=== PATIENT | female | born 1980 | race African-American/Black ===

== ENCOUNTER 2016-06-06 02:11 | Inpatient (IN) | payer OTHER ==
[~2016-06-06] VITALS: Ht 160 cm; Wt 55.1 kg
[~2016-06-06 02:11] MED LIST: ADVIL COLD &1 TABLET PO; AMLODIPINE BESYL5 MG PO; AZOR 5/20 MG1 TABLET PO; CIPRO500 MG PO; FLAGYL500 MG PO; FLEXERIL10 MG PO; FLUOXETINE HCL20 MG PO; KEFLEX500 MG PO; MIRTAZAPINE15 MG PO; NAPROSYN375 MG PO; NORCO 5/3251 TABLET PO; OMEPRAZOLE40 M1 PO; PAROXETINE HCL20 MG PO; PAXIL20 MG PO; PAXIL30 MG PO; PYRIDIUM200 MG PO; REMERON15 M2 PO; STOOL SOFTENER100 MG PO; TORADOL10 MG PO; TRILEPTAL150 MG PO; TRILEPTAL300 MG PO; VALACYCLOVIR500 MG PO; VITAFUSION PO; ZOVIRAX200 MG PO
[2016-06-06] MEDS ORDERED: TRILEPTAL300 MG PO (02:48)
[2016-06-06] MEDS ORDERED: SEROQUEL200 MG PO (02:48)
[2016-06-06] MEDS ORDERED: NORVASC10 MG PO (02:49)
[2016-06-06 03:28] LABS: HEMATOCRIT 40.5 % (36.0-46.0); MCHC 32.3 G/DL (30.0-36.0); MCV 80.4 FL (83-99); MEAN PLAT.VOLUME 9.5 uM^3 (9.5-12.4); PLATELET COUNT 354 K/uL (156-360); RBC DIS.WIDTH-SD 49.4 % (39-53); RED BLOOD COUNT 5.04 M/uL (3.80-5.20); WHITE BLOOD COUNT 13.5 K/uL (4.1-10.2)
[2016-06-06 03:40] LABS: CHLORIDE 106 mEq/L (99-109); POTASSIUM 3.7 mEq/L (3.7-5.4); SODIUM 143 mEq/L (136-147)
[2016-06-06 03:42] LABS: GLUCOSE 79 mg/dL (70-99)
[2016-06-06 03:43] LABS: ANION GAP 15 MEQ/L (2-14)
[2016-06-06 03:45] LABS: SERUM ETHYL ALCOHOL 40 mg/dL
[2016-06-06 03:46] LABS: GFR ESTIMATE (CALCULATED) > 59 mL/min/
[2016-06-06 03:47] LABS: UREA NITROGEN (BUN) 12 mg/dL (9-23)
[2016-06-06 04:13] LABS: QUANTITATIVE HCG < 4.0 MIU/ML
[2016-06-06 05:19] LABS: ADD MIUA? YES; BILIRUBIN NEGATIVE; BLOOD NEGATIVE; COLOR YELLOW ((YELLOW)); GLUCOSE (STRIP) NEGATIVE; KETONES NEGATIVE; LEUKOCYTES TRACE; NITRITE NEGATIVE; PROTEIN (STRIP) NEGATIVE; SPECIFIC GRAVITY 1.012 (1.000-1.030); UROBILINOGEN 0.2 MG/DL (0.2-1.0)
[2016-06-06 05:27] LABS: BACTERIA RARE /HPF; EPITHELIAL CELLS RARE /HPF; MUCUS TRACE /LPF; RED BLOOD CELLS 0-5 /HPF (0-5); UCUL ADDED? NO; WHITE BLOOD CELLS 15-20 /HPF (0-5)
[2016-06-06 05:45] LABS: PHENCYCLIDINE NEGATIVE (25 ng/mL); THC CANNABINOIDS NEGATIVE (50 ng/mL)
[2016-06-06 05:46] LABS: ADD MEDTOX COMMENT Y; AMPHETAMINE NEGATIVE (500 ng/mL); BARBITURATES NEGATIVE (200 ng/mL); BENZODIAZEPINES NEGATIVE (150 ng/mL); COCAINE PRESUMPTIVE POSITIVE (150 ng/mL); INTERNAL CONTROLS VALID? YES; METHADONE NEGATIVE (200 ng/mL); METHAMPHETAMINE NEGATIVE (500 ng/mL); OPIATES (MORPHINE) NEGATIVE (100 ng/mL); OXYCODONE NEGATIVE (100 ng/mL); PROPOXYPHENE NEGATIVE (300 ng/mL); TRICYCLIC ANTIDEPRESSANTS NEGATIVE (300 ng/mL)
[2016-06-06 09:23] VITALS: BP 141/66
[2016-06-06 15:44] VITALS: BP 121/69
[2016-06-07 07:37] VITALS: BP 140/75
[2016-06-07 14:48] VITALS: BP 109/57
[2016-06-08 09:53] VITALS: BP 126/75
[2016-06-08 15:07] VITALS: BP 148/81
[2016-06-09 07:24] VITALS: BP 112/59
[2016-06-09 15:46] VITALS: BP 149/84
[2016-06-10 07:47] VITALS: BP 117/71
[2016-06-10 15:46] VITALS: BP 137/82
[2016-06-11 07:57] VITALS: BP 118/82
[2016-06-11] MEDS ORDERED: SEROQUEL200 MG PO (15:02)
[2016-06-11] MEDS ORDERED: NORVASC10 MG PO (15:02)
[2016-06-11] MEDS ORDERED: MIRTAZAPINE15 MG PO (15:02)
[2016-06-11] MEDS ORDERED: TRILEPTAL300 MG PO (15:02)
[2016-06-11 15:27] VITALS: BP 147/92
== END 2016-06-11 16:17 | disposition home or self-care (01) | DRG 885 ==
LOC: EME 02:11 → EDOF 08:35 → 1WEST 08:35 → EDOF 08:57 → 1WEST 09:17
PROVIDERS: Emergency Medicine
DX: F31.30 Bipolar disorder, current episode depressed, mild or moderate severity, unspecified (principal); F10.14 Alcohol abuse with alcohol-induced mood disorder; R45.851 Suicidal ideations; K61.1 Rectal abscess; F14.20 Cocaine dependence, uncomplicated; F17.210 Nicotine dependence, cigarettes, uncomplicated; Z88.0 Allergy status to penicillin; Y90.2 Blood alcohol level of 40-59 mg/100 ml; F60.9 Personality disorder, unspecified; N70.11 Chronic salpingitis; Z91.128 Patient's intentional underdosing of medication regimen for other reason; F15.10 Other stimulant abuse, uncomplicated; Z88.1 Allergy status to other antibiotic agents; Z59.0 Homelessness; Z56.0 Unemployment, unspecified
CPT/HCPCS: 71020; 72193; 80048; 81003; 84702; 84999; 85027; 90839; 97150 GO; 97166 GO; 99281; 99285; G0480; J2060; J7030

== ENCOUNTER 2016-06-29 04:16 | Emergency (ER) | payer OTHER ==
[~2016-06-29] VITALS: Ht 160 cm; Wt 57.7 kg
[~2016-06-29 04:16] MED LIST changes: +NORVASC10 MG PO; +SEROQUEL200 MG PO
[2016-06-29] MEDS ORDERED: CLEOCIN PE75 MG/5 ML PO (04:37)
[2016-06-29] MEDS ORDERED: PERCOCET 5/31 TABLET PO (04:37)
[2016-06-29 06:06] VITALS: BP 109/71
== END 2016-06-29 06:06 | disposition home or self-care (01) ==
LOC: EXP 04:16 → EME 04:16 → EXP 06:06
DX: L02.31 Cutaneous abscess of buttock (principal); F17.200 Nicotine dependence, unspecified, uncomplicated
CPT/HCPCS: 87070; 87075; 87076; 87205; 99281; 99285; J1885

== ENCOUNTER 2016-10-17 18:28 | Emergency (ER) | payer OTHER ==
[~2016-10-17] VITALS: Ht 160 cm; Wt 60.1 kg
[~2016-10-17 18:28] MED LIST changes: +CLEOCIN PE75 MG/5 ML PO; +PERCOCET 5/31 TABLET PO
[2016-10-17] MEDS ORDERED: DEPAKOTE500 MG PO (20:21)
[2016-10-17] MEDS ORDERED: RISPERDAL1 MG PO (20:21)
[2016-10-17] MEDS ORDERED: FLAGYL500 MG PO (20:22)
[2016-10-17 21:50] LABS: HEMATOCRIT 36.5 % (36.0-46.0); MCH 28.3 PG (29.0-34.0); MCHC 33.4 G/DL (30.0-36.0); MCV 84.7 FL (83-99); MEAN PLAT.VOLUME 9.9 uM^3 (9.5-12.4); PLATELET COUNT 267 K/uL (156-360); RBC DIS.WIDTH-SD 43.2 % (39-53); RED BLOOD COUNT 4.31 M/uL (3.80-5.20); WHITE BLOOD COUNT 9.1 K/uL (4.1-10.2)
[2016-10-17 22:03] LABS: CHLORIDE 106 mEq/L (99-109); POTASSIUM 3.7 mEq/L (3.7-5.4); SODIUM 136 mEq/L (136-147)
[2016-10-17 22:04] LABS: GLUCOSE 82 mg/dL (70-99)
[2016-10-17 22:06] LABS: ANION GAP 9 MEQ/L (2-14)
[2016-10-17 22:08] LABS: GFR ESTIMATE (CALCULATED) > 59 mL/min/
[2016-10-17 22:09] LABS: UREA NITROGEN (BUN) 17 mg/dL (9-23)
[2016-10-18 01:27] VITALS: BP 111/71
== END 2016-10-18 01:28 | disposition short-term general hospital (02) ==
LOC: EME 18:28
PROVIDERS: Emergency Medicine
DX: K61.1 Rectal abscess (principal); F43.10 Post-traumatic stress disorder, unspecified; F14.20 Cocaine dependence, uncomplicated; F43.20 Adjustment disorder, unspecified; K21.9 Gastro-esophageal reflux disease without esophagitis; I10 Essential (primary) hypertension; F17.200 Nicotine dependence, unspecified, uncomplicated
CPT/HCPCS: 72193; 80048; 85027; 90839; 99281; 99285; J7120; S0030

== ENCOUNTER 2017-02-09 08:03 | Emergency (ER) | payer OTHER ==
[~2017-02-09] VITALS: Ht 172.7 cm; Wt 62.7 kg
[~2017-02-09 08:03] MED LIST changes: +DEPAKOTE500 MG PO; +RISPERDAL1 MG PO
[2017-02-09] MEDS ORDERED: DEPAKOTE ER500 MG PO (11:05)
[2017-02-09] MEDS ORDERED: ATARAX,VISTARIL25 MG PO (11:05)
[2017-02-09 11:22] VITALS: BP 126/86
[2017-02-09 12:13] LABS: AHBS INDEX 815.74; HPCA INDEX 0.14
[2017-02-09 12:15] LABS: HIV INDEX 0.15; HIV-1/2 AB/AG COMBO Nonreactive
[2017-02-09 12:20] LABS: HEPATITIS B SURFACE ANTIBODY REACTIVE
== END 2017-02-09 11:23 | disposition home or self-care (01) ==
LOC: EME 08:03
PROVIDERS: Nurse Practitioner Family
PROC: 0H91XZZ Drainage of Face Skin, External Approach (ICD-10-PCS; principal; 2017-02-09)
DX: L72.3 Sebaceous cyst (principal); R51 Headache; F31.9 Bipolar disorder, unspecified; Z76.0 Encounter for issue of repeat prescription; F17.200 Nicotine dependence, unspecified, uncomplicated; Z88.0 Allergy status to penicillin; Z88.2 Allergy status to sulfonamides
CPT/HCPCS: 86703; 86706; 86803; 99281; 99284

== ENCOUNTER 2017-02-10 20:48 | Emergency (ER) | payer OTHER ==
[~2017-02-10] VITALS: Ht 160 cm; Wt 63.6 kg
[~2017-02-10 20:48] MED LIST changes: +ATARAX,VISTARIL25 MG PO; +DEPAKOTE ER500 MG PO
[2017-02-10 23:52] VITALS: BP 112/95
== END 2017-02-10 23:56 | disposition home or self-care (01) ==
LOC: EME 20:48
DX: R20.2 Paresthesia of skin (principal); I10 Essential (primary) hypertension; R42 Dizziness and giddiness; F17.200 Nicotine dependence, unspecified, uncomplicated; K21.9 Gastro-esophageal reflux disease without esophagitis; F32.9 Major depressive disorder, single episode, unspecified; Z86.73 Personal history of transient ischemic attack (TIA), and cerebral infarction without residual deficits; Z88.0 Allergy status to penicillin; Z88.2 Allergy status to sulfonamides
CPT/HCPCS: 70450; 99281; 99284

== ENCOUNTER 2017-02-16 13:05 | Emergency (ER) | payer OTHER ==
[~2017-02-16] VITALS: Ht 157.5 cm; Wt 63.2 kg
[2017-02-16] MEDS ORDERED: REMERON15 M2 PO (14:44)
[2017-02-16 15:08] VITALS: BP 129/74
== END 2017-02-16 15:10 | disposition home or self-care (01) ==
LOC: EME 13:05
DX: G47.00 Insomnia, unspecified (principal); Z59.0 Homelessness; F31.9 Bipolar disorder, unspecified; I10 Essential (primary) hypertension; K21.9 Gastro-esophageal reflux disease without esophagitis; F32.9 Major depressive disorder, single episode, unspecified; F17.200 Nicotine dependence, unspecified, uncomplicated; Z88.2 Allergy status to sulfonamides; Z88.0 Allergy status to penicillin
CPT/HCPCS: 99281; 99283

== ENCOUNTER 2017-03-10 20:28 | Emergency (ER) | payer OTHER ==
[~2017-03-10] VITALS: Ht 162.6 cm; Wt 67.3 kg
[2017-03-10 22:20] VITALS: BP 143/105
== END 2017-03-10 22:23 | disposition home or self-care (01) ==
LOC: EME 20:28
DX: K62.89 Other specified diseases of anus and rectum (principal); F17.200 Nicotine dependence, unspecified, uncomplicated
CPT/HCPCS: 99281; 99284

== ENCOUNTER 2017-03-11 13:54 | Observation (INO) | payer OTHER ==
[~2017-03-11] VITALS: Ht 162.6 cm; Wt 74.5 kg
[2017-03-11 15:50] LABS: EOSINOPHIL (%) 0.3 % (0-5); HEMATOCRIT 38.5 % (36.0-46.0); IMMATURE GRANULOCYTE (%) 0.2 % (0.0-0.7); LYMPHOCYTE COUNT 1.1 K/uL (1.0-2.8); MCH 29.7 PG (29.0-34.0); MEAN PLAT.VOLUME 11.3 uM^3 (9.5-12.4); MONOCYTE (%) 12.1 % (3-12); MONOCYTE COUNT 1.5 K/uL (0-0.8); NEUTROPHIL (%) 78.4 % (45-76); PLATELET COUNT 147 K/uL (156-360); RBC DIS.WIDTH-CV 14.7 % (11.8-14.6); RBC DIS.WIDTH-SD 48.6 % (39-53); RED BLOOD COUNT 4.28 M/uL (3.80-5.20); WHITE BLOOD COUNT 12.7 K/uL (4.1-10.2)
[2017-03-11 16:02] LABS: CHLORIDE 107 mEq/L (99-109); SODIUM 139 mEq/L (136-147)
[2017-03-11 16:04] LABS: GLUCOSE 93 mg/dL (70-99)
[2017-03-11 16:06] LABS: ANION GAP 13 MEQ/L (2-14); TOTAL BILIRUBIN 0.2 mg/dL (0.0-1.0)
[2017-03-11 16:08] LABS: ALKALINE PHOSPHATASE 52 IU/L (3-129); GFR ESTIMATE (CALCULATED) > 59 mL/min/
[2017-03-11 16:09] LABS: UREA NITROGEN (BUN) 14 mg/dL (9-23)
[2017-03-11 16:34] LABS: QUANTITATIVE HCG < 4.0 MIU/ML
[2017-03-11 20:00] VITALS: BP 133/88
[2017-03-11 20:06] VITALS: BP 133/88
[2017-03-11 23:06] VITALS: BP 136/78
[2017-03-12 04:01] VITALS: BP 142/80
[2017-03-12 06:12] LABS: HEMATOCRIT 35.1 % (36.0-46.0); MCH 29.2 PG (29.0-34.0); MCHC 32.8 G/DL (30.0-36.0); MCV 89.1 FL (83-99); MEAN PLAT.VOLUME 11.5 uM^3 (9.5-12.4); PLATELET COUNT 179 K/uL (156-360); RBC DIS.WIDTH-CV 14.6 % (11.8-14.6); RBC DIS.WIDTH-SD 47.7 % (39-53); RED BLOOD COUNT 3.94 M/uL (3.80-5.20)
[2017-03-12 07:42] VITALS: BP 165/91
[2017-03-12 11:47] VITALS: BP 158/93
[2017-03-12] MEDS ORDERED: NORCO 5/3251 TABLET PO (11:47)
[2017-03-12] MEDS ORDERED: AUGMENTIN875 MG PO (11:47)
[2017-03-12 16:22] VITALS: BP 158/93
[2017-03-12 20:20] VITALS: BP 125/78
[2017-03-13 00:13] VITALS: BP 163/88
[2017-03-13 06:52] LABS: HEMATOCRIT 35.7 % (36.0-46.0); MCH 29.3 PG (29.0-34.0); MCHC 32.8 G/DL (30.0-36.0); MCV 89.3 FL (83-99); MEAN PLAT.VOLUME 11.2 uM^3 (9.5-12.4); PLATELET COUNT 201 K/uL (156-360); RBC DIS.WIDTH-CV 14.7 % (11.8-14.6); RBC DIS.WIDTH-SD 47.7 % (39-53); WHITE BLOOD COUNT 12.3 K/uL (4.1-10.2)
[2017-03-13 08:28] VITALS: BP 148/89
[2017-03-13 15:56] VITALS: BP 157/102
[2017-03-13 20:24] VITALS: BP 147/89
[2017-03-14 00:29] VITALS: BP 154/92
[2017-03-14 07:52] VITALS: BP 139/92
[2017-03-14] MEDS ORDERED: ANECREAM30 GM TP (10:14)
== END 2017-03-14 13:38 | disposition home or self-care (01) ==
LOC: EME 13:54 → 3EAST 16:36 → EDOF 16:36 → ENRESERV 16:38 → 3EAST 19:34
PROVIDERS: Physician Assistant; Surgery
DX: K61.1 Rectal abscess (principal); L02.31 Cutaneous abscess of buttock; L03.317 Cellulitis of buttock; B95.4 Other streptococcus as the cause of diseases classified elsewhere; G89.18 Other acute postprocedural pain; Z90.49 Acquired absence of other specified parts of digestive tract; Z86.79 Personal history of other diseases of the circulatory system; F17.210 Nicotine dependence, cigarettes, uncomplicated; F14.11 Cocaine abuse, in remission
CPT/HCPCS: 80053; 84702; 85025; 85027; 87070; 87075; 87076; 87205; 99281; 99285; G0378; J0330; J1100; J1170; J1200; J1650; J2250; J2270; J2405; J2543; J3010; J7030; J7050; J7120

== ENCOUNTER 2017-10-09 09:09 | Inpatient (IN) | payer OTHER ==
[~2017-10-09] VITALS: Ht 160 cm; Wt 56.0 kg
[~2017-10-09 09:09] MED LIST changes: +ANECREAM30 GM TP; +AUGMENTIN875 MG PO
[2017-10-09 09:49] LABS: HEMATOCRIT 38.3 % (36.0-46.0); HEMOGLOBIN 13.3 G/DL (11.9-15.5); MCH 29.2 PG (29.0-34.0); MCHC 34.7 G/DL (30.0-36.0); PLATELET COUNT 272 K/uL (156-360); RBC DIS.WIDTH-CV 13.6 % (11.8-14.6); RBC DIS.WIDTH-SD 41.6 % (39-53); RED BLOOD COUNT 4.56 M/uL (3.80-5.20); WHITE BLOOD COUNT 12.7 K/uL (4.1-10.2)
[2017-10-09 10:05] LABS: ALBUMIN 4.9 g/dL (3.2-4.8); CHLORIDE 101 mEq/L (99-109); POTASSIUM 3.6 mEq/L (3.7-5.4); SODIUM 136 mEq/L (136-147)
[2017-10-09 10:07] LABS: GLUCOSE 57 mg/dL (70-99); TOTAL PROTEIN 8.3 g/dL (6.4-8.3)
[2017-10-09 10:09] LABS: TOTAL BILIRUBIN 0.4 mg/dL (0.0-1.0)
[2017-10-09 10:10] LABS: SERUM ETHYL ALCOHOL 79 mg/dL
[2017-10-09 10:11] LABS: GFR ESTIMATE (CALCULATED) > 59 mL/min/
[2017-10-09 10:12] LABS: ALKALINE PHOSPHATASE 83 IU/L (3-129); AST (GOT) 25 IU/L (2-34)
[2017-10-09 10:13] LABS: UREA NITROGEN (BUN) 16 mg/dL (9-23)
[2017-10-09 10:14] LABS: SALICYLATE < 5.0 MG/DL (15-30)
[2017-10-09 10:15] LABS: ACETAMINOPHEN (TYLENOL) < 10 mcg/mL (10-30); ALT (GPT) 17 IU/L (3-49)
[2017-10-09 10:21] LABS: QUANTITATIVE HCG < 4.0 MIU/ML
[2017-10-09 10:58] LABS: APPEARANCE SL.HAZY ((CLEAR)); BILIRUBIN NEGATIVE; BLOOD MODERATE; COLOR YELLOW ((YELLOW)); GLUCOSE (STRIP) NEGATIVE; KETONES 20; LEUKOCYTES NEGATIVE; NITRITE NEGATIVE; PROTEIN (STRIP) 30; SPECIFIC GRAVITY 1.021 (1.000-1.030)
[2017-10-09 11:06] LABS: BACTERIA NONE SEEN /HPF; EPITHELIAL CELLS 1+ /HPF; MUCUS TRACE /LPF; UCUL ADDED? NO; WHITE BLOOD CELLS 0-5 /HPF (0-5)
[2017-10-09 11:07] LABS: AMPHETAMINE NEGATIVE (500 ng/mL); BARBITURATES NEGATIVE (200 ng/mL); BENZODIAZEPINES NEGATIVE (150 ng/mL); BUPRENORPHINE PRESUMPTIVE POSITIVE (10 ng/mL); COCAINE PRESUMPTIVE POSITIVE (150 ng/mL); METHADONE NEGATIVE (200 ng/mL); METHAMPHETAMINE NEGATIVE (500 ng/mL); OPIATES (MORPHINE) NEGATIVE (100 ng/mL); OXYCODONE NEGATIVE (100 ng/mL); PHENCYCLIDINE NEGATIVE (25 ng/mL); PROPOXYPHENE NEGATIVE (300 ng/mL); THC CANNABINOIDS NEGATIVE (50 ng/mL); TRICYCLIC ANTIDEPRESSANTS NEGATIVE (300 ng/mL)
[2017-10-09 14:53] VITALS: BP 156/88
[2017-10-09 15:24] VITALS: BP 156/88
[2017-10-09] MEDS ORDERED: DEPAKOTE500 MG PO ×2 (15:29→15:30)
[2017-10-09] MEDS ORDERED: MOTRIN600 MG PO (15:31)
[2017-10-10 07:48] VITALS: BP 144/90
[2017-10-10 15:29] VITALS: BP 153/84
[2017-10-11 07:47] VITALS: BP 150/76
[2017-10-11 16:43] VITALS: BP 153/95
[2017-10-12 07:41] VITALS: BP 148/96
[2017-10-12 10:24] VITALS: BP 144/85
[2017-10-12 16:17] VITALS: BP 152/92
[2017-10-12 17:46] VITALS: BP 160/75
[2017-10-12 19:20] VITALS: BP 138/88
[2017-10-13 07:55] VITALS: BP 139/88
[2017-10-13 15:21] VITALS: BP 128/82
[2017-10-14 07:48] VITALS: BP 144/85
[2017-10-14] MEDS ORDERED: DEPAKOTE500 MG PO (09:22)
[2017-10-14] MEDS ORDERED: NICOTINE PATCH1 EAC2 TD (09:22)
[2017-10-14] MEDS ORDERED: AMLODIPINE BESYL5 MG PO (09:22)
[2017-10-14] MEDS ORDERED: DEPAKOTE ER250 MG PO (09:22)
[2017-10-14] MEDS ORDERED: REMERON15 M2 PO (09:23)
[2017-10-14] MEDS ORDERED: DEPAKOTE250 MG PO (09:24)
== END 2017-10-14 10:40 | disposition home or self-care (01) | DRG 885 ==
LOC: EME 09:09 → 1WEST 12:09 → EDOF 12:09 → ENRESERV 13:50 → 1WEST 14:51
PROVIDERS: Physician Assistant
DX: F33.1 Major depressive disorder, recurrent, moderate (principal); R45.851 Suicidal ideations; Y90.3 Blood alcohol level of 60-79 mg/100 ml; I10 Essential (primary) hypertension; K21.9 Gastro-esophageal reflux disease without esophagitis; F17.200 Nicotine dependence, unspecified, uncomplicated; F14.10 Cocaine abuse, uncomplicated; F10.10 Alcohol abuse, uncomplicated; F12.10 Cannabis abuse, uncomplicated; F41.9 Anxiety disorder, unspecified; G47.00 Insomnia, unspecified; F60.9 Personality disorder, unspecified; F22 Delusional disorders; Z81.8 Family history of other mental and behavioral disorders; Z86.73 Personal history of transient ischemic attack (TIA), and cerebral infarction without residual deficits
CPT/HCPCS: 80053; 81003; 84702; 84999; 85027; 90839; 99281; 99284; G0480